=== PATIENT | male | born 1960 | race Caucasian/White ===

== ENCOUNTER → 2024-02-09 | Outpatient (CLI) | payer MEDICARE ==
[~2024-02-09] VITALS: Ht 182.9 cm; Wt 108.9 kg
[2024-02-09] MEDS: ADENOSINE 91 MG in GIVE UN-DILUTED 0 ML IV ONE (10:20)
== END | disposition home or self-care (01) ==
LOC: XYW 09:00
PROVIDERS: ATTEND Specialist
DX: I10 Essential (primary) hypertension (principal); E78.5 Hyperlipidemia, unspecified; I42.9 Cardiomyopathy, unspecified
CPT/HCPCS: 78452; 93017; A9500; J0153

== ENCOUNTER 2024-03-10 05:55 | Day surgery (SDC) | payer MEDICARE ==
[~2024-03-10] VITALS: Ht 182.9 cm; Wt 108.9 kg
[2024-03-10] VITALS (7 sets, daily range): BP systolic 125–151; BP diastolic 73–89; PULSE 52–61; RESP 15–17; TEMP 98.5; O2SAT 93–96
[~2024-03-10 05:55] MED LIST: ASPI-543 PO; ATOR-47 PO; CARV12.544 PO; CLOP75TA70 PO; EMPA1TAB PO; EZET10TA22 PO; FENO160T PO; HYDR25TA5 PO; HYDR50TA47 PO; LOSA-535 PO; TERA5CAP42 PO
[2024-03-10] MEDS ORDERED: HEPARIN IN NS 1000Units/500mL 1,500 ML ONE (07:23)
[2024-03-10] MEDS ORDERED: LIDOCAINE 2%HCL (LOCAL ANESTH.) INJ 20ML MDV ONE (07:23)
[2024-03-10] MEDS ORDERED: IOHEXOL 350 MG/ML 100ML IJ ONE (07:24)
[2024-03-10] MEDS ORDERED: IODIXANOL 320MG/ML 100ML BTL IV ONE ×3 (07:24→08:22)
[2024-03-10] MEDS ORDERED: HEPARIN SODIUM (PORCINE) 5000 UNITS/ML 1ML VIAL ONE (07:43)
[2024-03-10] MEDS ORDERED: VERAPAMIL 2.5MG/ML INJ 2ML VIAL IV ONE (07:43)
[2024-03-10] MEDS ORDERED: fentaNYL CITRATE 100 MCG/2 ML VL ONE (07:43)
[2024-03-10] MEDS ORDERED: SODIUM CHL 0.9% 0 ML ONE (07:43)
[2024-03-10] MEDS ORDERED: MIDAZOLAM HCL 2MG/2ML 2ml VIAL (1mg/ml) ONE (07:43)
[2024-03-10] MEDS ORDERED: ANGIOMAX 250 MG VIAL IV ONE (07:43)
[2024-03-10] MEDS ORDERED: TERA10CA19 PO (09:34)
== END 2024-03-10 10:56 | disposition home or self-care (01) ==
LOC: CATH 05:55
PROVIDERS: ATTEND Internal Medicine Cardiovascular Disease
DX: R94.30 Abnormal result of cardiovascular function study, unspecified (principal); I25.10 Atherosclerotic heart disease of native coronary artery without angina pectoris; I11.0 Hypertensive heart disease with heart failure; I50.9 Heart failure, unspecified; E78.5 Hyperlipidemia, unspecified; E11.9 Type 2 diabetes mellitus without complications; Z79.899 Other long term (current) drug therapy; Z95.1 Presence of aortocoronary bypass graft; Z98.890 Other specified postprocedural states; Z88.8 Allergy status to other drugs, medicaments and biological substances
CPT/HCPCS: 93459; C1769; C1894; J1644; J2250; J3010; J7030; Q9967; 99152; 99153